=== PATIENT | male | born 1960 | race Caucasian/White ===

== ENCOUNTER 2018-04-19 11:58 | Observation (INO) | payer MEDICARE ==
[~2018-04-19] VITALS: Ht 177.8 cm; Wt 120.2 kg
[~2018-04-19 11:58] MED LIST: BENZ1 PO; Benztropine Mesy1 MG; CHOL10002; DIPH50 PO; GEMF600 PO; LISI5 PO; METO50ER PO; OMEP20ER PO; PERP4 PO; PRAV20 PO
[2018-04-19 13:09] LABS: BASOPHILS ABSOLUTE AUTO 0.03 K/mm3 (0.00-0.23); BASOPHILS PERCENT AUTO 0 % (0-2); EOSINOPHILS ABSOLUTE AUTO 0.02 K/mm3 (0.00-0.68); EOSINOPHILS PERCENT AUTO 0 % (0-6); Hematocrit 48.6 % (37.0-53.0); Hemoglobin 16.5 g/dL (13.5-17.5); IMMATURE GRAN ABSOLUTE AUTO 0.01 K/mm3 (0.00-0.10); IMMATURE GRAN PERCENT AUTO 0 % (0-1); LYMPHOCYTES ABSOLUTE AUTO 1.48 K/mm3 (0.84-5.20); LYMPHOCYTES PERCENT AUTO 14 % (21-46); MONOCYTES ABSOLUTE AUTO 1.21 K/mm3 (0.16-1.47); MONOCYTES PERCENT AUTO 11 % (4-13); Mean Corpuscular Volume 88 fL (80-100); Mean Platelet Volume 10.2 fL (9.1-12.4); NEUTROPHILS ABSOLUTE AUTO 8.13 K/mm3 (1.96-9.15); NEUTROPHILS PERCENT AUTO 75 % (41-73); Platelet Count 267 K/mm3 (150-400); RDW Standard Deviation 42.5 fL (35.1-46.3); White Blood Cell Count 10.88 K/mm3 (4.00-11.30)
[2018-04-19] MEDS ORDERED: METO100ER (13:16)
[2018-04-19] MEDS ORDERED: LOSA25 (13:16)
[2018-04-19] MEDS ORDERED: Omeprazole20 M1 (13:16)
[2018-04-19 13:26] LABS: Alanine Aminotransfer (ALT/SGP 60 U/L (12-78); Albumin, Blood 3.9 g/dL (3.4-5.0); Albumin/Globulin Ratio 1.1 (0.8-1.8); Alk Phos 58 U/L (50-136); Anion Gap 13 mmol/L (6-16); Aspartate Aminotrans (AST/SGOT 67 U/L (12-37); Bilirubin, Total 1.1 mg/dL (0.1-1.0); Blood Urea Nitrogen 15 mg/dL (8-24); Bun/Creatinine Ratio 16.1 (12.0-20.0); CO2, Blood 21 mmol/L (21-32); Calcium, Blood 8.7 mg/dL (8.5-10.1); Chloride, Blood 105 mmol/L (98-108); Creatinine, Blood 0.93 mg/dL (0.60-1.20); Ethanol (Alcohol), Blood, Med <3 mg/dL; Globulin, Blood 3.6 g/dL (2.2-4.0); Glomerular Filtration Rate >60 (60-); Glucose, Blood 100 mg/dL (70-99); Potassium, Blood 3.7 mmol/L (3.5-5.5); Salicylate <1.7 mg/dL (2.8-20.0); Sodium, Blood 139 mmol/L (136-145); Total Protein, Blood 7.5 g/dL (6.4-8.2)
[2018-04-19 13:32] LABS: Acetaminophen, Random <2.0 ug/mL (10.0-30.0)
[2018-04-19 20:51] LABS: Source, Urine Clean Catch
[2018-04-19 20:59] LABS: Appearance, Urine Clear (Clear); Bilirubin, Urine Neg (Neg); Blood, Urine 2+ (Neg); Color, Urine Amber (P-Yellow); Glucose Qualitative, Urine Neg (Neg); Ketones, Urine 3+ (Neg); Leukocyte Esterase, Urine 1+ (Neg); Nitrite, Urine Neg (Neg); Protein, Urine 2+ (Neg); Urobilinogen, Urine 1+ (Normal)
[2018-04-19 21:06] LABS: Bacteria Few /hpf; Hyaline Casts 0-2 /lpf (0-2); Mucus Light (0-Heavy); Squamous Epithelial Cells Rare /hpf (Few)
[2018-04-19 21:08] LABS: U Amphetamine Screen Not Detected; U Barbituate Screen Not Detected; U Benzodiazapine Screen Not Detected; U Buprenorphine Screen Not Detected; U Cannabinoids Screen Not Detected; U Cocaine Screen Not Detected; U Methadone Screen Not Detected; U Methamphetamine Screen Not Detected; U Opiates Screen Not Detected; U Oxycodone Screen Not Detected; U Phencyclidine Screen Not Detected; U Propoxyphene Screen Not Detected
== END 2018-04-22 14:02 | disposition home or self-care (01) ==
LOC: ER 11:58 → EOR 11:59
PROVIDERS: Emergency Medicine
DX: F23 Brief psychotic disorder (principal); F31.64 Bipolar disorder, current episode mixed, severe, with psychotic features; I10 Essential (primary) hypertension; Z79.899 Other long term (current) drug therapy; Z91.14 Patient's other noncompliance with medication regimen
CPT/HCPCS: 80053; 81001; 84443; 85025; 87086; 99285; G0378; G0480; Q0175; Q3014

== ENCOUNTER 2020-10-11 09:03 | Day surgery (SDC) | payer MEDICARE ==
[~2020-10-11] VITALS: Ht 177.8 cm; Wt 108.3 kg
[~2020-10-11 09:03] MED LIST changes: +LOSA25; +METO100ER; +Omeprazole20 M1
--- NOTE | 2020-10-11 09:32 | NUR ---
Ambulatory in Day Surgery History, Chart, Medications and Allergies reviewed before start of procedure.Patient confirms NPO status and agrees with scheduled surgery. Patient states colon prep results clear.Lungs clear T/O to Auscultation. Patient States Post-Procedure ride home has been arranged WITH MOTHER
[2020-10-11] MEDS ORDERED: PERP2 PO (09:35)
[2020-10-11] MEDS ORDERED: BENZ2 PO (09:36)
[2020-10-11] MEDS ORDERED: ASPI325 PO (09:36)
[2020-10-11] MEDS ORDERED: FAMO40 PO (09:37)
[2020-10-11] MEDS ORDERED: FINA5 PO (09:37)
[2020-10-11] MEDS ORDERED: TEMA30 PO (09:37)
--- NOTE | 2020-10-11 09:47 | NUR ---
10/11/20 0947 Tal Jain PATIENT DETERMINED TO BE ASA APPROPRIATE FOR PROPOFOL SEDATION PRIOR TO START OF PROCEDURE BY DR. SERRATO 3-LEAD EKG REVIEWED WITH PHYSICIAN PRIOR TO START OF PROCEDURE. Patient to ENDO 1History, Chart, Medications and Allergies reviewed before start of procedure.MONITOR INTACT WITH CONTINUOUS PULSE OXIMETRY AND INTERMITTENT BP. O2 VIA N/C INTACT THROUGHOUT SEDATION/PROCEDURE.
--- NOTE | 2020-10-11 10:22 | NUR ---
REPORT FROM LIYA LAM. DR SERRATO SPOKE TO PATIENT AND INSTRUCTED HIM TO HAVE A FOLLOW UP COLONOSCOPY IN 5 YEARS, HE DOES NOT NEED TO KEEP HIS FOLLOW UP APPOINTMENT.
--- NOTE | 2020-10-11 10:45 | NUR ---
Patient up to Ambulate independently. Gait steady. Discharge instructions reviewed with patient. Patient verbalizes understanding. Copy given to patient to take home. Patient States Post-Procedure ride home has been arranged. Discharged via wheelchair to private car for ride home. ALL BELONINGS RETURNED TO PATIENT.
== END 2020-10-11 10:48 | disposition home or self-care (01) ==
LOC: ORSCMMR 09:03 → ORD 10:00 → ORSCMMR 10:48
PROVIDERS: Internal Medicine Gastroenterology
PROC: 0DBM8ZX Excision of Descending Colon, Via Natural or Artificial Opening Endoscopic, Diagnostic (ICD-10-PCS; principal; 2020-10-11 10:00)
PROC: 0DBL8ZX Excision of Transverse Colon, Via Natural or Artificial Opening Endoscopic, Diagnostic (ICD-10-PCS; principal; 2020-10-11 10:00)
PROC: 0DBP8ZX Excision of Rectum, Via Natural or Artificial Opening Endoscopic, Diagnostic (ICD-10-PCS; principal; 2020-10-11 10:00)
PROC: 0DBK8ZX Excision of Ascending Colon, Via Natural or Artificial Opening Endoscopic, Diagnostic (ICD-10-PCS; principal; 2020-10-11 10:00)
PROC: 0DBN8ZX Excision of Sigmoid Colon, Via Natural or Artificial Opening Endoscopic, Diagnostic (ICD-10-PCS; principal; 2020-10-11 10:00)
DX: Z12.11 Encounter for screening for malignant neoplasm of colon (principal); K21.9 Gastro-esophageal reflux disease without esophagitis; I10 Essential (primary) hypertension; E78.00 Pure hypercholesterolemia, unspecified; F20.9 Schizophrenia, unspecified; D12.2 Benign neoplasm of ascending colon; D12.5 Benign neoplasm of sigmoid colon; D12.3 Benign neoplasm of transverse colon; D12.4 Benign neoplasm of descending colon; K62.1 Rectal polyp; Z79.82 Long term (current) use of aspirin; Z79.899 Other long term (current) drug therapy
CPT/HCPCS: 88305; J2704; J7120

== ENCOUNTER 2021-09-22 13:37 | Inpatient (IN) | payer MEDICARE ==
[~2021-09-22] VITALS: Ht 175.3 cm; Wt 104.8 kg
[~2021-09-22 13:37] MED LIST changes: +ASPI325 PO; +FAMO40 PO; -LOSA25; -Omeprazole20 M1; -PRAV20 PO
[2021-09-22 14:14] LABS: Hemoglobin 17.4 g/dL (13.5-17.5); Mean Corpuscular HGB 29.6 pg (26.0-34.0); Mean Corpuscular HGB Conc 34.1 g/dL (31.5-36.5); Mean Corpuscular Volume 87 fL (80-100); Mean Platelet Volume 10.1 fL (9.1-12.4); Platelet Count 281 K/mm3 (150-400); RDW Coefficient Variation 12.6 % (11.7-14.2); RDW Standard Deviation 40.3 fL (35.1-46.3); Red Blood Cell Count 5.88 M/mm3 (4.30-5.90); White Blood Cell Count 12.86 K/mm3 (4.00-11.30)
[2021-09-22 14:20] LABS: Anion Gap 8 mmol/L (6-16); Blood Urea Nitrogen 19 mg/dL (8-24); Bun/Creatinine Ratio 12.8 (12.0-20.0); CHOL/HDL RATIO 2.9; CO2, Blood 24 mmol/L (21-32); CPK Creatine Kinase 130 U/L (39-308); Calcium, Blood 9.5 mg/dL (8.5-10.1); Chloride, Blood 105 mmol/L (98-108); Cholesterol 134 mg/dL (50-200); Creatinine, Blood 1.49 mg/dL (0.60-1.20); Glomerular Filtration Rate 48 (60-); Glucose, Blood 123 mg/dL (70-99); HDL Cholesterol 46 mg/dL (>39); LDL/HDL RATIO 1.3; Low Density Lipoprotein Chol 60 mg/dL (0-110); Magnesium, Blood 1.9 mg/dL (1.6-2.4); Potassium, Blood 4.1 mmol/L (3.5-5.5); Sodium, Blood 137 mmol/L (136-145); Triglycerides 142 mg/dL (30-160); Troponin I <0.015 ng/mL (0.000-0.040); Very Low Density Lipoprot Chol 28 mg/dL (6-32)
--- NOTE | 2021-09-22 14:21 | NUR ---
PT SPOUSE IN FOR VISIT-UPDATED TO CURRENT STATUS AND PLAN OF CARE.
[2021-09-22 14:22] LABS: Creatine Kinase MB <1.0 ng/mL (0.0-3.6); Creatine Kinase MB Index Unable to Calculate (0.0-4.0)
[2021-09-22 14:49] LABS: International Normalized Ratio 1.06; Prothrombin Time Results 11.1 Sec (9.7-11.5)
--- NOTE | 2021-09-22 15:00 | NUR ---
RECEIVED PT FROM [facility] VIA BED. PT S/P ANGIO VIA RIGHT RADIAL ACCESS. TR BAND IN PLACE WITH 10 CC OF AIR TO CUFF-GOOD DISTAL PULSES.ARMBOARD IN PLACE. PT HAD SYNCOPAL EPISODE AT [facility] AND WAS SENT TO RE[facility]ING [employer] MACHINE [facility]PERATOR A STEMI. HOWEVER, THE ANGIO WAS CLEAR AND TROPONIN IS NEGATIVE AT THIS TIME. PT IS A&OX4. MED RECONCILLIATION DONE. PT DOES HAVE A PSYCH HISTORY FOR WHICH HE TAKES SEVERAL MEDICATIONS. ALSO, PT HAS RESTLESS LEGS. PT DENIES PAIN OR SOB. ECG SHOWS SR. SBP TRENDING 90-110'S. NO EDEMA. DP/PT PULSES 2+. LUNGS CLEAR. SATS 88-89% ON RA-PT PLACED ON 2 LITERS NASAL CANULA AND SATS>90% PT ABDOMEN IS OBESE, BUT SOFT WITH BT'S X 4. PT DENIES NAUSEA. URINAL PLACED AT THE BEDSIDE. CALL LIGHT PLACED WITHIN REACH.
--- NOTE | 2021-09-22 15:57 | NUR ---
DR. CABRERA CONTACTED REGARDING PT ROUTINE PSYCH MEDS FOR TONIGHT. PT CAN BE MED STATUS AFTER TR BAND REMOVED.
--- NOTE | 2021-09-22 17:56 | NUR ---
PT CONTINUES TO DENY CP OR SOB. RIGHT RADIAL TR BAND REMOVED AND CLEAR OCCLUSIVE DRESSING PLACE. RIGHT RADIAL SITE CLEAR-NO BLEEDING OR HEMATOMA. SBP TRENDING 90'S-IRENE HELD-SEE EMAR.
--- NOTE | 2021-09-22 19:52 | NUR ---
ASSUMED CARE OF PATIENT AT APPROXIMATELY 1905 FROM MOHIT Garcia RN. PATIENT ALERT AND ORIENTED X4. PATIETN DENIES CP/PRESSURE, PAIN ELSEWHERE, NUMBNESS, TINGLING, DIZZINESS, AND NAUSEA. S/P ANGIO TODAY WITH RIGHT RADIAL ACCESS; NO S/S OF ACTIVE BLEEDING, HEMATOMA OR BRUISING NOTED; ARMBOARD IN PLACE. NSR ON HEART MONITOR; OXYGEN SATURATION ABOVE 90% ON 2LPM VIA NC. PIV S/L. MEDICAL TELE STATUS.
--- NOTE | 2021-09-22 20:53 | NUR ---
ATTEMPTED TO CALL REPORT TO GOMEZ Soot [facility] RN FOR TRANSFER TO [facility] BUT RN WAS BUSY IN ANOTHER PATIENT'S ROOM.
--- NOTE | 2021-09-22 21:35 | NUR ---
REPORT GIVEN TO GOMEZ Soto RN. PATIENT TO BE TRANSFERRED VIA W/C TO ROOM 306 WITH BELONGINGS, CHART, AND MEDICATIONS.
--- NOTE | 2021-09-22 23:43 | NUR ---
received patient from ICU. Colten has no complaints of chest pain, pressure or SOB. Radial pulse distal to puncture site is easily palpable, and site remains soft,flat and dry. Arm board in place for protection and as a reminder to patient to be aware of arterial site. tele remains Sinus Rhythm. all VSS stable upon arrival to room 306. Plan, barring any complications will be for Colten to discharge tommorow with ZIO PATCH in place.
[2021-09-23 04:52] LABS: Hematocrit 49.2 % (37.0-53.0); Hemoglobin 16.5 g/dL (13.5-17.5); Mean Corpuscular HGB 29.5 pg (26.0-34.0); Mean Corpuscular HGB Conc 33.5 g/dL (31.5-36.5); Mean Corpuscular Volume 88 fL (80-100); Mean Platelet Volume 10.1 fL (9.1-12.4); Platelet Count 213 K/mm3 (150-400); RDW Standard Deviation 42.2 fL (35.1-46.3); Red Blood Cell Count 5.59 M/mm3 (4.30-5.90); White Blood Cell Count 7.67 K/mm3 (4.00-11.30)
[2021-09-23 05:26] LABS: Anion Gap 8 mmol/L (6-16); Blood Urea Nitrogen 19 mg/dL (8-24); Bun/Creatinine Ratio 16.7 (12.0-20.0); CO2, Blood 26 mmol/L (21-32); Calcium, Blood 8.8 mg/dL (8.5-10.1); Chloride, Blood 105 mmol/L (98-108); Creatinine, Blood 1.14 mg/dL (0.60-1.20); Glomerular Filtration Rate >60 (60-); Glucose, Blood 94 mg/dL (70-99); Potassium, Blood 4.1 mmol/L (3.5-5.5); Sodium, Blood 139 mmol/L (136-145); Troponin I <0.015 ng/mL (0.000-0.040)
--- NOTE | 2021-09-23 06:46 | NUR ---
bhargav had an uneventful night. he received his Restoril just before coming to the floor, allowed this RN to assess him, check the right radial puncture site and make sure he was comfortable. Patient was encouraged to drink as much water as he could as his creatinine was slightly elevated and he received IV dye in the supervisor dental laboratory. No complications overnight. Patient is expected to be discharged home today with a ZIO PATCH.
--- NOTE | 2021-09-23 10:34 | NUR ---
Echocardiogram completed.
--- NOTE | 2021-09-23 14:05 | NUR ---
SPOKE WITH DR. PIERSON ABOUT NOT BEING ABLE TO OBTAIN ZIO PATCH TODAY. STATED OK TO DISCHARGE LONG PT FOLLOWED UP WITH [facility] TOMORROW.
[2021-09-23] MEDS ORDERED: PRAV20 PO (14:34)
[2021-09-23] MEDS ORDERED: METOPROLOL SUCC25 MG PO (14:34)
[2021-09-23] MEDS ORDERED: BENZ1 PO (14:35)
[2021-09-23] MEDS ORDERED: PERP4 PO (14:35)
[2021-09-23] MEDS ORDERED: TEMA30 PO (14:36)
[2021-09-23] MEDS ORDERED: FINA5 PO (14:36)
[2021-09-23] MEDS ORDERED: LOSA25 PO (14:36)
[2021-09-23] MEDS ORDERED: Omeprazole20 M1 PO (14:37)
[2021-09-23] MEDS ORDERED: FAMO40 PO (14:50)
--- NOTE | 2021-09-23 16:01 | NUR ---
DISCHARGE SUMMARY PT A/O X4 AND ADMITTED FOR STEMI. PT HAD SYNCOPAL EPISODE WHILE IN PUBLIC. EDUCATED PT ON PREVENTING FALLS. ANGIO DONE AND SITE IS CDI WITH NO BLEEDING. PT TO COME BACK TOMORROW TO HAVE ZIO PATCH PLACED BY THE [facility]ART [facility]. PHONE NUMBER CONFIRMED WITH PT SO [facility]ART [facility]ENTER IS ABLE TO REACH HIM. VSS. DC'D HOME.
== END 2021-09-23 15:22 | disposition home or self-care (01) | DRG 287 ==
LOC: ER 13:37 → ICUW 13:57 → ICUE 14:50 → MEDS 21:49
PROVIDERS: Emergency Medicine; ADMIT Internal Medicine Interventional Cardiology
PROC: 4A023N7 Measurement of Cardiac Sampling and Pressure, Left Heart, Percutaneous Approach (ICD-10-PCS; principal; 2021-09-22)
PROC: B2151ZZ Fluoroscopy of Left Heart using Low Osmolar Contrast (ICD-10-PCS; 2021-09-22)
PROC: B2111ZZ Fluoroscopy of Multiple Coronary Arteries using Low Osmolar Contrast (ICD-10-PCS; 2021-09-22)
DX: I11.9 Hypertensive heart disease without heart failure (principal); I25.10 Atherosclerotic heart disease of native coronary artery without angina pectoris; E78.5 Hyperlipidemia, unspecified; K21.9 Gastro-esophageal reflux disease without esophagitis; E78.00 Pure hypercholesterolemia, unspecified; G89.29 Other chronic pain; F31.9 Bipolar disorder, unspecified; M54.9 Dorsalgia, unspecified; F25.9 Schizoaffective disorder, unspecified; Z88.0 Allergy status to penicillin; Z98.890 Other specified postprocedural states; Z87.891 Personal history of nicotine dependence; Z79.82 Long term (current) use of aspirin; Z79.899 Other long term (current) drug therapy
CPT/HCPCS: 36415; 71045; 76937; 80048; 80061; 82550; 82553; 83735; 84484; 85027; 85610; 85730; 86850; 86900; 86901; 93005; 93010; 93306; 93458; 96374; 99152; 99153; 99285-25; A9270; C1769; C1887; C1894; J1644; J2250; J3010; J7030; J7050; Q0175; Q9967

== ENCOUNTER 2025-05-18 08:43 | Day surgery (SDC) | payer MEDICARE ==
[~2025-05-18] VITALS: Ht 175.3 cm; Wt 115.5 kg
[~2025-05-18 08:43] MED LIST changes: +Aspir 8181 MG PO; +Balanced Salt Epinephrine Irrigation Solution 500 mL IR SCH; +CALCIUM 500 MG1 EAC5 PO; +FINA5 PO; +LOSA25 PO; +METO25ER PO; +METOPROLOL SUCC25 MG PO; +Moxifloxacin HCL 0.5 MG/0.1 ML 0.4MLSYR LEFTEYE SCH; +Omeprazole20 M1 PO; +Ondansetron 4 MG SoluTab MM PRN; +PHENYLEPHRINE\\TROPICAMIDE\\TETRACAINE OPHTHALMIC DILATING SOLN LEFTEYE PRN; +PRAV20 PO; +Povidone-Iodine 450 DROP/30 ML Solution LEFTEYE SCH; +Povidone-Iodine 450 DROP/30 ML Solution ONE; +TEMA30 PO; +Tetracaine HCl/Pf 0.5% Opth Soln 4 ml ONE; +VITAMIN D325 MC3 PO
--- NOTE | 2025-05-18 09:55 | NUR ---
05/18/25 0955 Cheryl Foreman PT STATES ANXIETY IS 3/10 IN PREOP PT HAS CALL LIGHT IN HAND PT IS ON CONTINUOUS PULSE OX MONITORING
--- NOTE | 2025-05-18 10:59 | NUR ---
05/18/25 1059 KEVIN MATTHEW PT VSS T/O 132/97 HR 76 02 94% ON BLOW BY
[2025-05-18 11:10] VITALS: BP 132/100
--- NOTE | 2025-05-18 11:26 | NUR ---
05/18/25 1126 SoSteve hernandez PT DENIES PAIN AND NAUSEA AT THIS TIME. PT AGREEABLE TO D/C HOME WITH FRIENDS.
== END 2025-05-18 11:26 | disposition home or self-care (01) ==
LOC: ORSCSDS 08:43
PROVIDERS: Student in an Organized Health Care Education/Training Program
PROC: 08RK3JZ Replacement of Left Lens with Synthetic Substitute, Percutaneous Approach (ICD-10-PCS; principal; 2025-05-18 11:00)
DX: H25.813 Combined forms of age-related cataract, bilateral (principal); I10 Essential (primary) hypertension; E78.00 Pure hypercholesterolemia, unspecified; Z79.82 Long term (current) use of aspirin; Z79.899 Other long term (current) drug therapy; Z87.891 Personal history of nicotine dependence
CPT/HCPCS: A9270; V2632

== ENCOUNTER 2025-05-24 06:54 | Day surgery (SDC) | payer MEDICARE ==
[~2025-05-24] VITALS: Ht 175.3 cm; Wt 116.1 kg
[~2025-05-24 06:54] MED LIST changes: -Moxifloxacin HCL 0.5 MG/0.1 ML 0.4MLSYR LEFTEYE SCH; +Moxifloxacin HCL 0.5 MG/0.1 ML 0.4MLSYR RIGHTEYE SCH; -PHENYLEPHRINE\\TROPICAMIDE\\TETRACAINE OPHTHALMIC DILATING SOLN LEFTEYE PRN; +PHENYLEPHRINE\\TROPICAMIDE\\TETRACAINE OPHTHALMIC DILATING SOLN RIGHTEYE PRN; -Povidone-Iodine 450 DROP/30 ML Solution LEFTEYE SCH; +Povidone-Iodine 450 DROP/30 ML Solution RIGHTEYE SCH
--- NOTE | 2025-05-24 08:08 | NUR ---
05/24/25 0808 Josefina Ochoa PT REPORTED ANXIETY LEVEL WAS 4/10 PRIOR TO ADMINISTRATION OF VALIUM 10MG PO @ 0758. CONTINUOUS SPO2 AND HR MONITORING IN PLACE. SPO2 94% RA, HR 90. CALL LIGHT IN PATIENT'S HAND. TETRACAINE IN AT 0803 PLEDGETT IN AT 0805
--- NOTE | 2025-05-24 08:46 | NUR ---
05/24/25 0846 Adrian Elias BP 138/104, HR 88, OS 97% W/ O2 BLOWBY AT 8L.
[2025-05-24 08:59] VITALS: BP 146/98
--- NOTE | 2025-05-24 09:10 | NUR ---
05/24/25 0910 Asia Morfin PT'S BP WAS ELEVATED, BUT DURING PRE-OP PT HAD ELEVATED BP. PT STATES THAT HE TAKES A BP MEDICATION, BUT HE CAN'T REMEMBER TAKING IT THIS MORNING. THIS PT STATED THAT HE CHECKS HIS BP REGULARLY AT HOME, AND MONITORS IT CLOSELY. PT PLEASANT AND COOPERATIVE WITH CARE. PT ABLE TO MAKE NEEDS KNOWN. [facility] WILL PICK PT UP AT 0920. PT TOLERATED FLUIDS WELL. PT DENIED NAUSEA, AND NO PAIN AT THIS TIME. PT EDUCATION PROVIDED, ALL QUESTIONS ANSWERED AND CONCERNS ADDRESSED.
== END 2025-05-24 09:08 | disposition home or self-care (01) ==
LOC: ORSCSDS 06:54
PROVIDERS: Student in an Organized Health Care Education/Training Program
PROC: 08RJ3JZ Replacement of Right Lens with Synthetic Substitute, Percutaneous Approach (ICD-10-PCS; principal; 2025-05-24 09:00)
DX: H25.811 Combined forms of age-related cataract, right eye (principal); Z96.1 Presence of intraocular lens; Z87.891 Personal history of nicotine dependence; I10 Essential (primary) hypertension; E78.00 Pure hypercholesterolemia, unspecified; Z79.82 Long term (current) use of aspirin; Z79.899 Other long term (current) drug therapy
CPT/HCPCS: A9270; J2003; V2632